=== PATIENT | female | born 1970 | race Caucasian/White ===

== ENCOUNTER 2017-01-28 21:35 | Observation (INO) | payer BC ==
[~2017-01-28] VITALS: Ht 157.5 cm; Wt 62.3 kg
[2017-01-28 22:06] LABS: BASOPHILS 0.7 % (0.0-2.0); EOSINOPHILS 2.9 % (0-7); HEMATOCRIT 37.3 % (36.0-48.0); HEMOGLOBIN 12.4 g/dL (12-16); IMMATURE GRANULOCYTES 0.4 % (0-5); LYMPHOCYTES 37.4 % (15-50); MCHC 33.2 g/dL (31.0-37.0); MCV 90.3 fL (80.0-100.0); MEAN PLATELET VOLUME 10.9 fL (7.4-10.4); MONOCYTES 9.7 % (2-11); NEUTROPHILS 48.9 % (40-80); PLATELET COUNT 197 10x3/uL (130-400); RBC 4.13 10x6/uL (4.00-5.40); RDW 14.3 % (11.5-14.5); WBC 5.5 10x3/uL (4.8-10.8)
[2017-01-28 22:17] LABS: ALBUMIN 3.6 g/dL (3.4-5.0); ALKALINE PHOSPHATASE 35 U/L (46-116); ALT (SGPT) 14 U/L (10-68); BILIRUBIN - TOTAL 0.28 mg/dL (0.2-1.3); CALC OSMOLALITY 279 mosm/kg (275-300); CALCIUM 8.4 mg/dL (8.5-10.1); CARBON DIOXIDE 25.8 mmol/L (21.0-32.0); CHLORIDE - SERUM 106 mmol/L (98-107); GLUCOSE 100 mg/dL (74-106); POTASSIUM - SERUM 4.2 mmol/L (3.5-5.1); PROTEIN - SERUM 7.1 g/dL (6.4-8.2); SODIUM 140 mmol/L (136-145); UREA NITROGEN 15 mg/dL (7-18); eGFR NON AFRICAN AMERICAN 63 mL/min (90-120)
[2017-01-28 22:29] LABS: CKMB 0.5 U/L (0.0-3.6); CREATINE KINASE 73 UL (21-215); TROPONIN-I < 0.017 ng/mL (0.000-0.060)
--- NOTE | 2017-01-28 23:36 | NUR ---
REPORT RECEIVED FROM KAZ LEE.
[2017-01-29] VITALS: BP 123/79
--- NOTE | 2017-01-29 00:21 | NUR ---
ARRIVED TO FLOOR VIA WHEELCHAIR, ACCOMPANIED BY HOSPITAL STAFF AND SPOUSE. ORIENTED TO UNIT. PLACED ON TELEMETRY 64 SR. PLAN OF CARE DISCUSSED. CALL LIGHT IN REACH. SEE NURSE ASSESSMENT.
[2017-01-29] MEDS ORDERED: PROVENTIL HFA6.7 GM INH (00:25)
[2017-01-29] MEDS ORDERED: SUMATRIPTAN SUC25 MG PO (00:32)
[2017-01-29] MEDS ORDERED: BUTALB-APAP-CA1 EACH PO (00:32)
[2017-01-29 00:33] VITALS: BP 123/79; Ht 157.5 cm; Wt 62.3 kg
[2017-01-29 01:45] LABS: CKMB 0.3 U/L (0.0-3.6); CREATINE KINASE 63 UL (21-215); TROPONIN-I < 0.017 ng/mL (0.000-0.060)
[2017-01-29 04:00] VITALS: BP 115/71
--- NOTE | 2017-01-29 07:31 | NUR ---
ASSESSMENT COMLETED. TELEMERTY SHOWS SR 92.LEFT AC SL. DENIES ANY NEEDS.FAMILY AT BEDSIDE. SR UP WITH CALL LIGHT IN REACH . WILL MONITOR
[2017-01-29 07:56] LABS: CKMB 0.5 U/L (0.0-3.6); CREATINE KINASE 60 UL (21-215); TROPONIN-I < 0.017 ng/mL (0.000-0.060)
[2017-01-29 08:56] VITALS: BP 131/73
[2017-01-29] MEDS ORDERED: NITROQUICK0.4 MG SL (10:08)
--- NOTE | 2017-01-29 10:12 | NUR ---
RESTING QUIETLY NAD NOTED
--- NOTE | 2017-01-29 11:08 | NUR ---
PT DISCHARGED. IV DCD WITH TIP INTACT. iNTRUCTIONS GIVEN TO PT. TO PRIVATE CAR PER WHEELCHAIR
== END 2017-01-29 11:09 | disposition home or self-care (01) ==
LOC: D.ER 21:35 → D.M2 23:18 → OBSVTIME 23:18 → D.M2 23:18
PROVIDERS: Emergency Medicine; ADMIT Internal Medicine Cardiovascular Disease
DX: R07.89 Other chest pain (principal); G35 Multiple sclerosis

== ENCOUNTER → 2018-08-11 16:38 | Outpatient (CLI) | payer MEDICAID ==
[2017-01-29 00:33] VITALS: BMI 25.1
[~2018-08-11 16:38] MED LIST: BUTALB-APAP-CA1 EACH PO; NITROQUICK0.4 MG SL; PROVENTIL HFA6.7 GM INH; SUMATRIPTAN SUC25 MG PO
== END | disposition home or self-care (01) ==
LOC: D.MAMMO 13:30
DX: N63.11 Unspecified lump in the right breast, upper outer quadrant (principal)